=== PATIENT | female | born 1955 | race Caucasian/White ===

== ENCOUNTER 2019-04-26 20:41 | Emergency (ER) | payer MEDICAID ==
[~2019-04-26] VITALS: Ht 157.5 cm; Wt 76.2 kg
[2019-04-26 20:46] VITALS: Ht 157.5 cm; Wt 76.2 kg
[2019-04-26 21:35] LABS: BASOPHIL % 0.6 % (0-2); PLATELET COUNT 337 x10^3mcL (130-400)
[2019-04-26 21:38] LABS: RED CELL DISTRIBUTION WIDTH 17.3 % (11.5-14.5)
[2019-04-27 00:26] VITALS: BP 131/55
== END 2019-04-27 00:26 | disposition home or self-care (01) ==
LOC: ED 20:41
PROVIDERS: Emergency Medicine
DX: J44.1 Chronic obstructive pulmonary disease with (acute) exacerbation (principal); I10 Essential (primary) hypertension; M54.6 Pain in thoracic spine; Z86.73 Personal history of transient ischemic attack (TIA), and cerebral infarction without residual deficits
CPT/HCPCS: J1100; J2270; J2405; J3475; J3535; J7613; J7644; Q0092

== ENCOUNTER 2019-05-15 22:03 | Inpatient (IN) | payer MEDICAID ==
[~2019-05-15] VITALS: Ht 162.6 cm; Wt 67.6 kg
[2019-05-15 22:10] VITALS: Ht 162.6 cm; Wt 67.6 kg
--- NOTE | 2019-05-15 22:19 | NUR ---
PT BIB [facility] FROM HOME AND PLACED IN BED. PT AAOX4 WITH C/O 10/10 PAIN TO OSTOMY SITE WITH SOB AND CONGESTED COUGH X 3 DAYS. PT STATES SYMPTOMS BECAME WORSE TODAY. PT NOTED TO HAVE LABORED BREATHING WITH AUDIBLE WHEEZING. PT NOTED WITH OSTOMY WITH LOOSE STOOL DRAINING INTO BAG. PT DENIES ANY FEVER, N/V/D/C, OR URINARY PROBLEMS AT THIS TIME. PT PLACED ON MONITOR.
[2019-05-15 23:28] LABS: BASOPHIL % 0.5 % (0-2); PLATELET COUNT 250 x10^3mcL (130-400); RED CELL DISTRIBUTION WIDTH 18.5 % (11.5-14.5)
[2019-05-15 23:37] LABS: CALCIUM 7.9 mg/dL (8.5-10.1); CARBON DIOXIDE 23.5 mmol/L (21-32); CHLORIDE SERUM 104 mmol/L (98-107); CREATININE SERUM 0.9 mg/dL (0.6-1.0); GFR1 > 60 mL/min; GLUCOSE SERUM 180 mg/dL (74-106); POTASSIUM SERUM 3.8 mmol/L (3.5-5.1); SODIUM SERUM 137 mmol/L (136-145)
[2019-05-15 23:42] LABS: ALBUMIN 2.7 g/dL (3.4-5.0); ALKALINE PHOSPHATASE 124 U/L (46-116); ALT/SGPT 25 U/L (14-59); AST/SGOT 27 U/L (15-37); BILIRUBIN TOTAL 0.2 mg/dL (0.20-1.00); TOTAL PROTEIN, SERUM 6.4 g/dL (6.4-8.2)
--- NOTE | 2019-05-15 23:47 | NUR ---
PT RESTING IN BED WITH EYES CLOSED WITH NO SIGNS OF DISTRESS.
[2019-05-16] VITALS (7 sets, daily range): BP systolic 95–127; BP diastolic 45–67
--- NOTE | 2019-05-16 00:19 | NUR ---
PT SITTING UP IN BED WITH NO SIGNS OF DISTRESS.
--- NOTE | 2019-05-16 01:13 | NUR ---
PT RESTING IN BED STATING PAIN IS BETTER AFTER IV MORPHINE. NO SIGNS OF DISTRESS.
[2019-05-16] MEDS ORDERED: HORIZANT300 MG PO (01:18)
[2019-05-16] MEDS ORDERED: PANTOPRAZOLE SO40 M1 PO (01:19)
[2019-05-16] MEDS ORDERED: COU1 PO (01:20)
[2019-05-16] MEDS ORDERED: FORTAMET1000 MG PO (01:20)
[2019-05-16] MEDS ORDERED: ADVAIR HFA 45/21 AER IH (01:21)
[2019-05-16] MEDS ORDERED: PULMICORT180 MCG/A2 IH (01:22)
[2019-05-16] MEDS ORDERED: SPIRIVA18 MC1 IH (01:22)
[2019-05-16] MEDS ORDERED: PROAIR HFA8.5 GM INH (01:23)
--- NOTE | 2019-05-16 01:33 | NUR ---
REPORT GIVEN TO SRINIVAS MULLER.
[2019-05-16 01:36] LABS: CHOLESTEROL 168 mg/dL (<200); CHOLESTEROL/HDL RATIO 4.8; HDL CHOLESTEROL 35 mg/dL (40-60); MAGNESIUM 1.6 mg/dL (1.8-2.4); PHOSPHOROUS 3.1 mg/dL (2.5-4.9)
[2019-05-16 01:37] LABS: TRIGLYCERIDES 766 mg/dL (<150)
[2019-05-16 01:48] LABS: FREE T4 0.84 ng/dL (0.76-1.46); FREE THYROXINE INDEX 2.2 ug/dL (1.4-4.5); T4(THYROXINE) 6.7 ug/dL (4.7-13.3)
--- NOTE | 2019-05-16 02:23 | NUR ---
RECIEVED PT FROM ED. PT IS A/O x4. AUDIABLE WHEEZING HEARD. PT ON 2L NC. USE OF ACCESSORY MUSCLES SEEN. ONCE PT WAS SETTLED IN BED AND RELAXED, PT STILL HAS WHEEZING BUT ACCESSORY MUSCLE USE HAS DECLINE. ON TELE 25, ST AT 101. DENIES ANY CHEST PAIN OR PRESSURE. PULSES ARE PRESENT. EDEMA NOTED ON BLE. COLOSTOMY BAG ON RLQ. INTACT AND CLEAN. STOMY VISIBLE, PINK AND MOIST. DENIES ANY ABD PAIN. PER PT USES A W/C AT HOME. SKIN INTACT. SALINE LOCKED ON LFA INTACT AND PATENT. PT COMPLAIN OF BACK PAIN 5/10, NON RADIATING, SHARP AND CHRONIC. NO PAIN MEDICATION NOTED ON EMAR, MD VALLECILLO WAS PAGED, AWAITING CALL BACK. MADE PT COMFORTABLE IN BED. MRSA WAS OBTAINED. BED IS AT LOWEST SETTING. CALL LIGHT WITHIN REACH. WILL CONTINUE TO MONTIOR.
--- NOTE | 2019-05-16 02:30 | NUR ---
PT TRANSFERRED TO TELE UNIT ON FULL CM ADN ON 2L NC O2. PT AAOX4. RESP E/U. NAD EN ROUTE. RENZO RUTHERFORD TO ASSUME CARE.
[2019-05-16 02:32] LABS: T3 TOTAL 1.07 ng/mL
[2019-05-16 06:34] LABS: microscopic required? NO
--- NOTE | 2019-05-16 06:41 | NUR ---
PT IS RESTING IN BED. DENIES ANY PAIN OR DISTRESS. PT STATES SHE STILL FEELS A BIT OUT OF BREATH BUT NOT "BAD". EQUAL CHEST RISE AND FALL. WHEEZING HEARD ON MUKUND MUSTAFA. SPO2 IN THE 90S. NO ACUTE EVENT OCCURED AT NIGHT. BED IS AT LOWEST SETTING. CALL LIGHT WITHIN REACH. WILL ENDORSE TO AM NURSE.
[2019-05-16 06:43] LABS: PLATELET COUNT 242 x10^3mcL (130-400)
[2019-05-16 06:44] LABS: BASOPHIL % 0 % (0-2); RED CELL DISTRIBUTION WIDTH 18.2 % (11.5-14.5)
[2019-05-16 06:54] LABS: CALCIUM 8.6 mg/dL (8.5-10.1); CARBON DIOXIDE 19.3 mmol/L (21-32); POTASSIUM SERUM 4.6 mmol/L (3.5-5.1)
[2019-05-16 07:20] LABS: urine erythrocyte NEGATIVE (NEGATIVE)
[2019-05-16 07:38] LABS: AMPHETAMINE QUAL UR NONE DETECTED (See below)
--- NOTE | 2019-05-16 09:00 | NUR ---
RECIEVED PATIENT FROM EMERGENCY DEPARTMENT. PATIENT ACCOMPANIED TO [facility] BY LAY OUT FORMER. PATIENT ARRIVED VIA GURNEY. PATIENT IS CURRENTLY A MED SURG PATIENT AND IS NOT ON TELEMETRY. PATIENT'S DAUGHTER: BRENDA MENDES ACCOMPANYING PATIENT. DAUGHTER REPORTS HEARING THE PATIENT FALL AT 0200 AND THE PATIENT RAN INTO HER MOTHER'S ROOM TO FIND HER MOTHER ON THE FLOOR. BRENDA- PATIENT'S DAUGHTER PHONED THE AMBULANCE AND PATIENT WAS BROUGHT TO [facility]. PATIENT DIAGNOSED WITH RIGHT HIP FRACTURE. PATIENT IS CURRENTLY A/O X 1. PATIENT IS ONLY ORIENTED TO PERSON. CONFUSION PRESENT. PATIENT NOT ORIENTED TO PLACE OR TIME OR REASON FOR STAY. LUNG SOUNDS ARE DIMINISHED IN ALL MUSTAFA. PATIETN IS CURRENTLY SATURATING AT 92% ON ROOM AIR. PATIENT DOES NOT USE OXYGEN AT HOME. NO CURRENT COMPLAINT OF PAIN AT THIS TIME. SLIGHT ECCHYMOSIS TO RIGHT HIP STATUS POST FALL. FALL PRECAUTIONS IN PLACE. ALL SAFETY PRECAUTIONS CURRENTLY IN PLACE. WILL CONTINUE TO MONITOR PATIENT.
--- NOTE | 2019-05-16 09:14 | NUR ---
RECIEVED PATIENT FROM [facility] NURSE CABELLO. PATIENT CURRENTLY OBSERVED RECIEVING A BREATHING TREATMENT FROM RESPIRATORY THERAPY. PATIENT REPORTS CHEST PAIN THROBBING FEELING PAIN A NUMBER 7 ON A SCALE OF 1-10. ADMINISTERED PAIN MEDICATION PER PATIENT'S EMAR AND PHYSICIAN RECOMMENDATIONS. PATIENT REPORTS PAIN RELIEF POST IV PUSH PAIN MEDICATION. ALL SAFETY PRECAUTIONS CURRENTLY IN PLACE. BED IN THE LOW POSITION. CALL LIGHT WITHIN REACH. WILL CONTINUE TO MONITOR PATIENT.
--- NOTE | 2019-05-16 16:08 | NUR ---
PAIN CURRENTLY WELL MANAGED AND WELL CONTROLLED. DAUGHTER AT BEDSIDE WITH PATIENT. PATIENT CONTINUES TO HAVE WHEEZING NOTED UPON LUNG AUSCULTATION. OXYGEN SATURATION CURRENTLY AT 96%. EDUCATION PROVIDED TO DAUGHTER AND PATIENT ABOUT THE IMPORTANCE OF HAVING REGULAR PRIMARY CARE VISITS WITH A PRIMARY CARE PHYSICIAN FOR THE PATIENT TO RECIEVE APPROPRIATE MANAGEMENT OF HER COPD. DAUGHTER AND PATIENT BOTH VERBALIZED UNDERSTANDING AND ACKNOWLEDGED THAT PRIMARY CARE MANAGMENT HAS NOT BEEN SEEKED REGULARY. PATIENT AND DAUGHTER PROVIDED WITH RECOMMENDATIONS FOR LOW COST PRIMARY CARE CLINICS.
--- NOTE | 2019-05-16 16:48 | NUR ---
PATIENT VIGOROUSLY SCRATCHING ARMS STATING THAT HER ARMS ITCH. PATIENT STATES THAT THIS ITCHING MAY BE RELATED TO NORCO. PATIENT HAS TAKEN NORCO PREVIOUSLY IN THE PAST WITH NO REACTION. NO KNOWN DRUG ALLERGIES. PATIENT REQUESTING MORE PAIN MEDICATION. PATIENT EXHIBITING SIGNS AND SYMPTOMS OF ANXIETY. ALSO CURRENTLY REQUESTING BREATHING TREATMENT. RT NOTIFIED. PATIENT IS NOW CURRENTLY RECIEVING BREATHING TREAT. WILL REASSES ANXIETY POST BREATHING TREATMENT AND ADMINISTER TREATMENT NECESSARY. WILL REASSESS PAIN POST BREATHING TREATMENT AND AMINISTER MEDICATION PER EMAR AND PHYSICIAN RECOMMENDATIONS.
--- NOTE | 2019-05-16 18:36 | NUR ---
PATIENT CURRENTLY AWAKE ALERT AND ORIENTED. PATIENT RECIVING NS AT A KVO RATE. IV LOCATED TO LAC, IV PATENT AND INTACT NO SIGNS OF INFILTRATION. PATIENT REPORTED GENERALIZED PAIN 10/10 THROBBING. ADMINISTERED MEDICATION PER EMAR FOR PATIENT. PATIENT CURRENTLY OBSERVED EATING DINNER. NO CURRENT REPORT OF SOB. WILL ENDORSE ALL FURTHER CARE TO NOC NURSE.
--- NOTE | 2019-05-16 19:30 | NUR ---
PT IS A/O x4. ON TELE #25, ST WITH HR IN LOW 100S. DENIES ANY CHEST PAIN OR PRESSURE. PULSES ARE PRESENT. TRACE EDEMA NOTED ON BLE. WHEEZING ON MUKUND LOBES. ON 2L NC. DENIES ANY SOB AT THIS TIME. BOWEL SOUNDS ARE PRESENT. COLOLSTOMY BAG ON RLQ WAS EMTPIED. BAG WAS FILLED WITH AIR AND 200CC OF SOFT, GREENISH BROWN STOOL. STOMA NOTED PINK AND MOIST. MID UPPER ABD LUMP NOTED. PER PT SHE HAD IT THERE FOR A LONG TIME AND HER PCP IS AWARE. SKIN INTACT WITH SCATTERED ERYTHEMIC SPOTS NOTED ON BUE. DENIES PAIN AT THIS TIME. SALINE LOCKED ON LFA INTACT AND PATENT. BED IS AT LOWEST SETTING. CALL LIGHT WITHIN REACH. WILL CONTINUE TO MONITOR.
--- NOTE | 2019-05-17 00:22 | NUR ---
PT IS RESTING IN BED COMPLAINING OF PAIN, SHARP, 10/10 ON HER R BACK RADIATING TO HER STOMA ARE. AREA CHECKED AND IS NORMAL TO PT SKIN. NO LESION NOTED. PAIN MEDICATION GIVEN PER EMAR. BED IS AT LOWEST SETTING. CALL LIGHT WITHIN REACH. WILL CONTINUE TO MONTIOR.
[2019-05-17 05:12] VITALS: BP 115/54
--- NOTE | 2019-05-17 06:22 | NUR ---
PT IS RESTING IN BED. DENIES ANY PAIN OR DISTRESS AT THIS TIME. NO ACUTE EVENT OCCURED AT NIGHT. COLOSTOMY BAG EMPITED. SITE CLEAN AND INTACT. BED IS AT LOWET SETTING. CALL LIGHT WITHIN REACH. WILL ENDORSE TO AM NURSE.
--- NOTE | 2019-05-17 07:10 | NUR ---
SEEN RESTING IN BED AAOX3. MONTSERRATIAN SPEAKING. APPEARS ANXIOUS STATED HAVING PAIN TO LOWER BACK AREA 8/10 ON PAIN SCALE. S/L TO LTFA INTACT AND PATENT. ON CCHO DIET. CALL LIGHT PLACED WITHIN EASY REACH. SIDERAILS UP X2.
[2019-05-17 07:41] LABS: PLATELET COUNT 276 x10^3mcL (130-400)
[2019-05-17 07:44] LABS: BASOPHIL % 0 % (0-2); RED CELL DISTRIBUTION WIDTH 19.1 % (11.5-14.5)
[2019-05-17 08:05] LABS: CALCIUM 8.4 mg/dL (8.5-10.1); CARBON DIOXIDE 25.5 mmol/L (21-32); CHLORIDE SERUM 108 mmol/L (98-107); CREATININE SERUM 0.9 mg/dL (0.6-1.0); GFR1 > 60 mL/min; GLUCOSE SERUM 261 mg/dL (74-106); POTASSIUM SERUM 4.5 mmol/L (3.5-5.1); SODIUM SERUM 141 mmol/L (136-145)
[2019-05-17 09:05] VITALS: BP 124/60
[2019-05-17 13:12] VITALS: BP 112/67
--- NOTE | 2019-05-17 15:08 | NUR ---
Discount pharmacy card and list to low cost medical clinics given to patient by Levi.
[2019-05-17 17:30] VITALS: BP 119/60
--- NOTE | 2019-05-17 18:30 | NUR ---
UNABLE TO FLUSHED IV TO LT HAND, IV CATHETER REMOVED. NEW IV CATH#24 INSERTED TO RIGHT HAND WITH GOOD BLD RETURNED AND FLUSHED WELL.
--- NOTE | 2019-05-17 19:40 | NUR ---
TOOK PATIENT OFF BIPAP AND PLACED ON HIGH FLOW 40L/M 60% WITHOUT INCIDENT TO EAT DINNER.
--- NOTE | 2019-05-17 19:53 | NUR ---
PT CURRENTLY RESTING IN BED, NO ACUTE DISTRESS. A/O X4. TELE #25 SHOWING SINUS RHYTHM, DENIES CHEST PAIN. PULSES PALPABLE IN ALL EXTREMITIES, NO EDEMA NOTED. LUNG SOUNDS WHEEZING BILATERALLY, DENIES SOB. O2 VIA NC AT 2L. RLQ COLOSTOMY NOTED, LAST BM 05/17/19. VOIDING WELL. GENERALIZED WEAKNESS. AMBULATORY WITH ASSIST. IV PATENT AND INTACT. BED IN LOWEST POSITION, SIDE RAILS UP X2, CALL LIGHT WITHIN REACH. WILL CONTINUE TO MONITOR.
[2019-05-17 20:26] VITALS: BP 123/52
--- NOTE | 2019-05-18 01:29 | NUR ---
PT CURRENTLY RESTING IN BED, NO ACUTE DISTRESS. BED IN LOWEST POSITION, SIDE RAILS UP X2, CALL LIGHT WITHIN REACH. WILL CONTINUE TO MONITOR.
[2019-05-18 05:11] VITALS: BP 124/50
--- NOTE | 2019-05-18 06:09 | NUR ---
PT SLEPT PERIODICALLY THROUGHOUT NIGHT, NO ACUTE DISTRESS. ALL NEEDS MET AND ATTENDED TO. NO SIGNIFICANT CHANGES. IV PATENT AND INTACT. MEDICATED PAIN PER EMAR. BED IN LOWEST POSITION, SIDE RAILS UP X2, CALL LIGHT WITHIN REACH. WILL ENDORSE CARE TO ONCOMING NURSE.
[2019-05-18 06:52] LABS: BASOPHIL % 0.2 % (0-2); PLATELET COUNT 240 x10^3mcL (130-400)
--- NOTE | 2019-05-18 07:15 | NUR ---
SEEN RESTING WITH EYES CLOSED. BREATHING E/U ON O2 2LPM N/C. NO SOB NOTED AT THIS TIME. GEN BODY WEAKNESS. ABLED TO GET UP USING WALKER WITH ASSISTANCE. COLOSTOMY TO RLQ WITH BROWISH SOFT STOOL NOTED. VOIDS. S/L TO RT HAND INTACT AND PATENT. CALL LIGHT PLACED WITHIN EASY REACH. SIDERAILS UP X2.
[2019-05-18 07:23] LABS: CALCIUM 8.4 mg/dL (8.5-10.1); CARBON DIOXIDE 26.2 mmol/L (21-32); CHLORIDE SERUM 107 mmol/L (98-107); CREATININE SERUM 0.8 mg/dL (0.6-1.0); GFR1 > 60 mL/min; GLUCOSE SERUM 255 mg/dL (74-106); POTASSIUM SERUM 4.3 mmol/L (3.5-5.1); SODIUM SERUM 141 mmol/L (136-145)
[2019-05-18 07:26] LABS: RED CELL DISTRIBUTION WIDTH 19.8 % (11.5-14.5)
[2019-05-18 08:35] VITALS: BP 137/65
[2019-05-18 12:08] VITALS: BP 146/58
--- NOTE | 2019-05-18 14:00 | NUR ---
IV TO RT HAND LEAKING, IV CATHETER REMOVED. NEW IV CATH#24 INSERTED TO RFA WITH GOOD BLD RETURNED AND FLSUEHD WELL.
[2019-05-18 17:34] VITALS: BP 115/67
--- NOTE | 2019-05-18 18:09 | NUR ---
NO ANY DISTRESS NOTED. BREATHING ON ROOM AIR AT THIS TIME, O2SAT 98%. MORPHINE GIVEN X1 FOR BACK PAIN WITH GOOD RELIEF. S/L TO RFA INTACT AND PATENT.
--- NOTE | 2019-05-18 20:35 | NUR ---
PATIENT COMPLAINED OF BACK PAIN, CRYING. MORPHINE SULFATE 2 MG IVP GIVEN ORDERED. WILL CONTINUE TO MONITOR.
[2019-05-18 21:01] VITALS: BP 129/57
--- NOTE | 2019-05-18 22:08 | NUR ---
PATIENT AWAKE, ALERT, ORIENTED X4 IN BED CRYING, COMPLAINING OF BACK PAIN. BELARUSIAN SPEAKING. RESPIRATION EVEN AND UNLABORED, ON O2 2L PER NASAL CANNULA. TRACE EDEMA TO BLE. COLOSTOMY TO RLQ INTACT. NO GI COMPLAINT NOTED, LBM 05/18/2019. VOIDING FREELY, USES BEDPAN. GENERALIZED WEAKNESS TO EXTREMITIES. SCATTERED RED SPOTS ON BUE. SALINE LOCK TO RIGHT HAND PATENT AND INTACT. ON TELE #25. WILL CONTINUE TO MONITOR.
--- NOTE | 2019-05-19 04:37 | NUR ---
PATIENT COMPLAINED OF BACK PAIN, 11/21. MEDICATED WITH MORPHINE SULFATE 2 MG IVP ORDERED. WILL CONTINUE TO MONITOR.
[2019-05-19 05:49] VITALS: BP 126/51
--- NOTE | 2019-05-19 05:51 | NUR ---
PATIENT RESTING IN BED. RESPIRATION EVEN AND UNLABORED, ON O2 2L PER NASAL CANNULA. IV SITE NO SIGN OF INFILTRATION. COLOSTOMY BAG TO RLQ INTACT. ASSISTED WITH NEEDS.SAFETY OBSERVED. PLACED BED IN THE LOWEST POSITION. PLACED CALL LIGHT WITHIN REACH AT ALL TIMES.
[2019-05-19 07:17] LABS: BASOPHIL % 0.1 % (0-2); PLATELET COUNT 294 x10^3mcL (130-400)
[2019-05-19 07:28] LABS: RED CELL DISTRIBUTION WIDTH 19.4 % (11.5-14.5)
[2019-05-19 07:36] LABS: CALCIUM 8.5 mg/dL (8.5-10.1); CARBON DIOXIDE 25.2 mmol/L (21-32); CHLORIDE SERUM 105 mmol/L (98-107); CREATININE SERUM 0.9 mg/dL (0.6-1.0); GFR1 > 60 mL/min; GLUCOSE SERUM 289 mg/dL (74-106); POTASSIUM SERUM 4.2 mmol/L (3.5-5.1); SODIUM SERUM 139 mmol/L (136-145)
--- NOTE | 2019-05-19 08:08 | NUR ---
AFTER FINISHING ASSESSMENT ON ANOTHER PATIENT AND RETURNING TO THE NURSE'S STATION I HEARD A PATIENT CRYING. I WENT TO OBSERVE AND FOUND THE PATIENT ON THE CHAIR BEING ASSISTED BY CHARGE NURSE AND ONE OTHER RN. PATIENT SELF REPORTS FALLING ON THE FLOOR. PATIENT ASSISTED BACK TO THE BED BY AND PLACED ON 2 LITER OXYGEN VIA NASAL CANNULA. PATIENT REPORTS THAT SHE IS NOT FEELING A HEADACHE OR DIZZINESS AT THIS TIME. CURRENT VITAL SIGNS: TEMP OF 98.0 F, RESPIRATIONS 15, B/P 119/63, OXYGEN SATURATION AT 96%, HEART RATE 88, AND REPORT OF PAIN 10/10 TO UPPER LEFT ARM. WILL ADMINISTER PAIN MEDICATION PER EMAR. PATIENT SITUATED SAFELY BACK IN BED. THREE SIDE RAILS RAISED, BED ALARM TURNED ON. PATIENT GIVEN EDUCATION ON UTILIZING CALL LIGHT TO CALL FOR ASSISTANCE.
--- NOTE | 2019-05-19 08:42 | NUR ---
CALLED NURSE PRACTIONER ANDERA REGARDING PATIENT'S FALL AND MANAGER OF PRODUCTION ORDERED LEFT XRAY OF ARM AND LEFT XRAY OF HIP AND LEG.
[2019-05-19 08:47] VITALS: BP 130/58
--- NOTE | 2019-05-19 08:51 | NUR ---
PATIENT GIVEN PAIN MEDICATION PER EMAR.
--- NOTE | 2019-05-19 11:50 | NUR ---
PORTABLE MRI BEING PERFORMED AT BEDSIDE. RAILROAD INSPECTOR AND DAUGHTER ROLAND DODSON NOTIFIED OF PATIENT'S FALL.
--- NOTE | 2019-05-19 12:07 | NUR ---
PHYSICAL THERAPY NOTE ATTEMPTED FOR SCHEDULED PHYSICAL THERAPY TREATMENT SESSION, PT REFUSED SECONDARY TO 01/21 PAIN TO L SIDE AT REST, W/ MOVEMENT AT THIS TIME. ATTENDING RN, ERNESTO, MADE AWARE.
[2019-05-19 12:47] VITALS: BP 148/95
--- NOTE | 2019-05-19 15:20 | NUR ---
PHYSICAL THERAPY DAILY NOTES CO-SIGN All documentation done by the Tub Wash Operator for 05/19/19 has been reviewed. I agree with the documentation. Reviewed/Co-Signed by: Randi Gonzales PT Documentation Done by: NAYELY ALMONTE, DATAPOWER DEVELOPER
[2019-05-19 16:35] VITALS: BP 110/48
[2019-05-19 17:00] VITALS: BP 110/48
--- NOTE | 2019-05-19 18:47 | NUR ---
PATIENT CURRENTLY AWAKE ALERT AND ORIENTED. DAUGTHER AT BEDSIDE. MRI IMAGIGING REVEALED NO ACUTE DISPLACEMENT OR FRACTURE FOR LEFT HIP, TIBIA, FIBIA, AND LEFT UPPER SHOULDER. NO REPORT OF PAIN FROM THE PATIENT AT THIS TIME. PATIENT CONTINUES TO REMAIN ON 2 LITER OXYGEN VIA NASAL CANNULA. ALL SAFETY PRECAUTIONS IN PLACE. BED IN THE LOW POSITION. BED ALARM ACTIVATED. WILL ENDORSE CARE TO NOC NURSE.
--- NOTE | 2019-05-19 19:30 | NUR ---
REC'D PT FROM DAY NURSE. PT RESTING IN BED. AAOX4, SPEECH CLEAR, FOLLOWS COMMANDS. TELE 25. DENIES CP, DIZZINESS, OR PALPITATIONS. DENIES RESP DISTRESS OR SOB. BREATHING EVEN/UNLABORED ON 1L O2 VIA NC, SPO2 97%. NC REMOVED, SPO2 96% ON RA. NO EDEMA NOTED. ABD SOFT/ROUND. RLQ COLOSTOMY WITH LOOSE YELLOW STOOL. MID UPPER HERNIA. VOIDING FREELY. GEN WEAKNESS. REPORTS MILD R SIDED PAIN, TOLERABLE. BUE ECCHYMOSIS WITH NEERU BLANCHABLE ERYTHEMA. IV TO RH PATENT AND INFUSING @ TKO. CALL LIGHT WITHIN REACH, BED AT LOWEST POSITION, BED ALARM ON. WILL CONTINUE TO MONITOR.
[2019-05-19 21:47] VITALS: BP 139/56
--- NOTE | 2019-05-19 22:04 | NUR ---
PT C/O 01/21 BACK PAIN. MORPHINE GIVEN PER ORDER.
--- NOTE | 2019-05-19 23:14 | NUR ---
COLOSTOMY LEAKING. REMOVED AND CHANGED. STOMA PINK. SOME ERYTHEMA TO SKIN SURROUNDING STOMA. 400 ML LOOSE YELLOW STOOL OUT. PT DENIES PAIN AT THIS TIME. WILL CONTINUE TO MNITOR.
--- NOTE | 2019-05-19 23:22 | NUR ---
PT GIVEN AMBIEN PER REQUEST FOR INSOMNIA.
--- NOTE | 2019-05-20 01:05 | NUR ---
PT RESTING IN BED WITH EYES CLOSED. NO SIGNS OF DISTRESS OR PAIN NOTED. BREATHING EVEN/UNLABORED ON RA. CALL LIGHT WITHIN REACH, BED AT LOWEST POSITION. WILL CONTINUE TO MONITOR.
[2019-05-20 05:41] VITALS: BP 116/47
--- NOTE | 2019-05-20 06:20 | NUR ---
PT AWAKE AND C/O 10/10 BACK PAIN. MORPHINE GIVEN. DENIES RESP DISTRESS OR SOB. BREATHING EVEN/UNLABORED ON RA. NO SIGNIFICANT CHANGES DURING SHIFT. CALL LIGHT WITHIN REACH, BED AT LOWEST POSITION. WILL ENDORSE TO DAY NURSE.
[2019-05-20 07:14] LABS: BASOPHIL % 0.1 % (0-2); PLATELET COUNT 320 x10^3mcL (130-400)
[2019-05-20 07:17] LABS: CALCIUM 8.4 mg/dL (8.5-10.1); CARBON DIOXIDE 29.1 mmol/L (21-32); CHLORIDE SERUM 102 mmol/L (98-107); CREATININE SERUM 0.6 mg/dL (0.6-1.0); GFR1 > 60 mL/min; GLUCOSE SERUM 92 mg/dL (74-106); POTASSIUM SERUM 3.9 mmol/L (3.5-5.1); SODIUM SERUM 140 mmol/L (136-145)
[2019-05-20 07:51] LABS: RED CELL DISTRIBUTION WIDTH 18.7 % (11.5-14.5)
[2019-05-20] MEDS ORDERED: ZITHROMAX TRI-500 MG PO (08:54)
[2019-05-20] MEDS ORDERED: MEDROL DOSEPAK4 MG PO (08:55)
[2019-05-20 09:00] LABS: rbc morphology (normal/abnorm) NORMAL (NORMAL)
[2019-05-20 09:19] VITALS: BP 144/49
--- NOTE | 2019-05-20 09:40 | NUR ---
C/O ANXIETY. GAVE ATIVAN 0.5 MG PO AT 0940. SHE IS SLEEPY AND STATES SHE FEELS BETTER.
--- NOTE | 2019-05-20 10:36 | NUR ---
AAO TIMES 4. TELE # 25 SR. LUNGS DIMINISHED BILATERALLY. O2 SAT ON RA 95%. BS'S ACTIVE TIMES 4. BILLY WITH GENERALIZED WEAKNESS, BED ALARM ON. YELLOW WRIST BAND ON WRIST. FALL PRECAUTIONS STAR IN DOORWAY AND SHE IS WEARING YELLOW SOCKS. COOPERATIVE AND PLEASANT. NO C/O PAIN. NO SOB.
[2019-05-20 12:21] VITALS: BP 138/67
[2019-05-20] MEDS ORDERED: PULMICORT180 MCG/A2 IH (13:10)
[2019-05-20] MEDS ORDERED: PROAIR HFA8.5 GM INH (13:10)
--- NOTE | 2019-05-21 06:40 | NUR ---
PHYSICAL THERAPY DAILY NOTES CO-SIGN All documentation done by the Roller Coaster Operator for 05/21/19 has been reviewed. I agree with the documentation. Reviewed/Co-Signed by: Randi Gonzales PT Documentation Done by: NAYELY ALMONTE, BASEBALL COACH
--- NOTE | 2019-05-21 06:44 | NUR ---
PHYSICAL THERAPY DAILY NOTES CO-SIGN All documentation done by the Continuous Process Tanner Rotary Drum for 05/20/19 has been reviewed. I agree with the documentation. Reviewed/Co-Signed by: Randi Gonzales PT Documentation Done by: NAYELY ALMONTE, AGING BOX HAND
== END 2019-05-20 16:19 | disposition home or self-care (01) | DRG 140 ==
LOC: ED 22:03 → DU 05-16 00:47
PROVIDERS: Emergency Medicine; Internal Medicine; ADMIT Family Medicine
DX: J44.1 Chronic obstructive pulmonary disease with (acute) exacerbation (principal); E43 Unspecified severe protein-calorie malnutrition; Z99.81 Dependence on supplemental oxygen; I69.354 Hemiplegia and hemiparesis following cerebral infarction affecting left non-dominant side; E83.51 Hypocalcemia; E11.9 Type 2 diabetes mellitus without complications; D50.9 Iron deficiency anemia, unspecified; R06.03 Acute respiratory distress; E78.5 Hyperlipidemia, unspecified; F41.9 Anxiety disorder, unspecified; I10 Essential (primary) hypertension; Z91.19 Patient's noncompliance with other medical treatment and regimen; Z79.01 Long term (current) use of anticoagulants; Z79.84 Long term (current) use of oral hypoglycemic drugs; Z87.891 Personal history of nicotine dependence; Z86.711 Personal history of pulmonary embolism; Z99.3 Dependence on wheelchair; Z93.3 Colostomy status; Z68.30 Body mass index [BMI] 30.0-30.9, adult
CPT/HCPCS: 82962; 83880; 84439; 87804; 94150; 97110-GP; 97116-GP; 97530-GP; A4371; G0378; J0456; J1815; J1885; J1956; J2060; J2270; J2405; J2920; J2930; J3475; J7050; J7613; J7626; J7644; Q0092